=== PATIENT | male | born 1985 | race Caucasian/White ===

== ENCOUNTER 2019-11-10 12:52 | Emergency (ER) | payer OTHER ==
[~2019-11-10] VITALS: Ht 175.3 cm; Wt 72.0 kg
[2019-11-10 13:30] VITALS: BP 119/77
[2019-11-10] MEDS ORDERED: FLUORESCEIN OPHTHALMIC 1 MG STRIP ONE (13:38)
[2019-11-10] MEDS ORDERED: PROPARACAINE OPHTH 0.5%, 15ML ONE (13:39)
--- NOTE | 2019-11-10 13:40 | NUR ---
PT STATES HE IS UNABLE TO PERFORM VISUAL ACUITY AT THIS TIME.
--- NOTE | 2019-11-10 14:00 | NUR ---
TASK RN: PT SITTING UP IN EYE EXAM CHAIR W EYES CLOSED. PT REPORTS SIGNIFICANT PAIN. AWAITING ERP EVAL. LIGHTS DIMMED FOR COMFORT.
== END 2019-11-10 14:54 | disposition home or self-care (01) ==
LOC: ED 13:00
DX: H10.33 Unspecified acute conjunctivitis, bilateral (principal); F17.200 Nicotine dependence, unspecified, uncomplicated
CPT/HCPCS: 99283

== ENCOUNTER 2020-01-10 02:11 | Emergency (ER) | payer OTHER ==
[~2020-01-10] VITALS: Ht 175.3 cm; Wt 72.4 kg
[2020-01-10] MEDS ORDERED: AZITHROMYCIN 500 MG TABLET PO ONE (02:30)
[2020-01-10] MEDS ORDERED: CEFTRIAXONE 250 MG IM ONE (02:30)
[2020-01-10] MEDS ORDERED: AZITHROMYCIN 500 MG TABLET ONE (02:48)
[2020-01-10] MEDS ORDERED: CEFTRIAXONE 250 MG ONE (02:49)
--- NOTE | 2020-01-10 03:01 | NUR ---
antibiotic given. patient discharged with instruction. verbalized understanding.
[2020-01-10 03:13] VITALS: BP 116/72
== END 2020-01-10 03:16 | disposition home or self-care (01) ==
LOC: ED 03:06
DX: A64 Unspecified sexually transmitted disease (principal); F17.210 Nicotine dependence, cigarettes, uncomplicated
CPT/HCPCS: 96372; 99283; 99406; J0696

== ENCOUNTER 2020-06-02 08:10 | Emergency (ER) | payer MEDICAID, OTHER ==
[~2020-06-02] VITALS: Ht 175.3 cm; Wt 76.0 kg
[2020-06-02 08:15] VITALS: BP 119/66
[2020-06-02] MEDS ORDERED: NEOSPORIN OINT. PKT 1 PACKET ONE (08:43)
[2020-06-02] MEDS ORDERED: HYDROcodone/APAP 5/325 TABLET ONE (08:57)
[2020-06-02] MEDS ORDERED: CLINDAMYCIN 300 MG CAPSULE ONE (08:57)
[2020-06-02] MEDS ORDERED: CLINDAMYCIN 300 MG CAPSULE PO ONE (09:00)
[2020-06-02] MEDS ORDERED: HYDROcodone/APAP 5/325 TABLET PO ONE (09:00)
[2020-06-02] MEDS ORDERED: DIPH,PERTUSS(ACELL),TET VAC/PF 0.5 ML IM-VACC ONE ×2 (09:00→09:07)
--- NOTE | 2020-06-02 10:26 | NUR ---
HEART RATE REMAINS ELEVATED AT 132 ERPA AWARE ORDERE FLUIDS AND LABS PT DECLINED FURTHER INTEVENTION REPORTS KNOWN HIGH HEART RATE AND REQUESTS DC
== END 2020-06-02 10:56 | disposition home or self-care (01) ==
LOC: ED 09:13
DX: S80.12XA Contusion of left lower leg, initial encounter (principal); G89.11 Acute pain due to trauma; W22.8XXA Striking against or struck by other objects, initial encounter; Y93.89 Activity, other specified; Y92.488 Other paved roadways as the place of occurrence of the external cause; Y99.8 Other external cause status
CPT/HCPCS: 90471; 90715; 99283